=== PATIENT | female | born 1980 | race Caucasian/White ===

== ENCOUNTER 2020-05-20 13:56 | Outpatient (CLI) | payer BC, SELFPAY ==
--- NOTE | ~2020-05-20 | XR_ITS ---
XR abdomen/kub 1V 05/20/2020 14:08 INDICATION: Left ureteral stone TECHNIQUE: KUB COMPARISON: None FINDINGS: Bowel gas pattern is normal. There is no evidence of free air, mass, organomegaly, ascites or obstruction. No abnormal calculi are seen. The bones appear intact. There are surgical changes in the right pelvis. IMPRESSION: 1: No acute abdominal abnormality identified. Reviewed, dictated and finalized at location A. LEGAL SUPERVISOR
== END 2020-05-20 13:57 | disposition home or self-care (01) ==
PROVIDERS: PCP Family Medicine; Visit Provider Urology
DX: N20.1 Calculus of ureter (principal)
CPT/HCPCS: 74018

== ENCOUNTER 2020-07-28 16:44 | Outpatient (CLI) | payer BC, SELFPAY | END 2020-07-28 16:45 | disposition home or self-care (01) | LOC: ANHCOVIDVC 16:44 | PROVIDERS: PCP Family Medicine | DX: Z23 Encounter for immunization (principal) | CPT/HCPCS: 0001A; 91300 ==

== ENCOUNTER 2020-08-18 16:47 | Outpatient (CLI) | payer BC, SELFPAY | END 2020-08-18 16:48 | disposition home or self-care (01) | LOC: ANHCOVIDVC 16:47 | PROVIDERS: PCP Family Medicine | DX: Z23 Encounter for immunization (principal) | CPT/HCPCS: 0002A; 91300 ==

== ENCOUNTER 2024-05-03 15:03 | Outpatient (CLI) | payer OTHER, SELFPAY ==
[2024-05-03 15:21] LABS: Mean Corpuscular HGB Conc 34.1 g/dl (32-36); Mean Corpuscular Hemoglobin 30.6 pg (26-34); Mean Corpuscular Volume 89.5 fl (80-100); Mean Platelet Volume 9.3 fl (7.4-10.4); Platelet Count Result 280 k/mm3 (150-375); Red Blood Count 4.58 M/mm3 (4.2-5.4); Red Cell Distribution Width 11.9 % (11.5-14.5); White Blood Count 9.3 K/mm3 (4.5-10.0)
== END 2024-05-03 15:04 | disposition home or self-care (01) ==
LOC: ANHLAB 15:04
PROVIDERS: PCP Family Medicine; Visit Provider Obstetrics & Gynecology
DX: N93.8 Other specified abnormal uterine and vaginal bleeding (principal)
CPT/HCPCS: 36415; 85027

== ENCOUNTER 2024-06-01 14:29 | Outpatient (CLI) | payer OTHER, SELFPAY ==
--- NOTE | ~2024-06-01 | US_ITS ---
US pelvic complete w TV Ordering provider: Kevin Chavez MD History: . N93.9 - Abnormal uterine and vaginal bleeding, unspecified . Comparison: None. Technique: Transabdominal and endovaginal ultrasound of the pelvis (Doppler ultrasound interrogation techniques used as needed for this exam.) FINDINGS: CERVIX: Nabothian cyst measuring 1.1 x 0.8 x 1 cm. UTERUS: Measures 9.7x 4.5x 5 cm in length which is within normal limits and is anteverted. No myomet rial masses. ENDOMETRIUM: Not well defined. Possibility of endometrial fibroid or a mass cannot be excluded. Furth er evaluation advised. Increased vascularity. CUL DE SAC: No free fluid. RIGHT OVARY: Remote surgically. LEFT OVARY: Normal in size measuring 3x 1.8x 3.8 cm. Normal echotexture. Doppler vascular flow presen t. Cyst is seen measuring 2.3 x 1.7 x 1.8 cm. ADNEXA: Normal. No mass. IMPRESSION: Endometrium is not well-defined with possible fibroid or a mass. Further evaluation with a CT scan or MRI is advised. Right ovarian cyst. Nabothian cysts in the cervix. Otherwise, normal pelvic ultrasou nd. Reviewed, dictated and finalized at location A. RCIL CORE TRANSFORMER ASSEMBLER IMPRESSION: Endometrium is not well-defined with possible fibroid or a mass. Further evalua tion with a CT scan or MRI is advised. Right ovarian cyst. Nabothian cysts in t he cervix. Otherwise, normal pelvic ultrasound.
== END 2024-06-01 14:30 | disposition home or self-care (01) ==
LOC: ANHIMG 14:39
PROVIDERS: Visit Provider Obstetrics & Gynecology
DX: N93.9 Abnormal uterine and vaginal bleeding, unspecified (principal); D21.9 Benign neoplasm of connective and other soft tissue, unspecified
CPT/HCPCS: 76830; 76856

== ENCOUNTER 2024-07-10 09:40 | Outpatient (CLI) | payer OTHER, SELFPAY ==
--- NOTE | ~2024-07-10 | MR_ITS ---
EXAMINATION: MR pelvis wo/w con DATE: 07/10/2024 10:54 INDICATION: Other specified abnormal uterine and vaginal bleeding. Abnormal pelvic ultrasound. TECHNIQUE: Magnetic resonance imaging (MRI) of the pelvis was performed without and with 15 mL Multih ance intravenous contrast. Fullfield sequences of the pelvis included axial and coronal T2-weighted S S FSE, coronal 2D FIESTA, axial T1-weighted FSPGR, axial dual-echo T1-weighted FSPGR and axial T1 janiya ghted LAVA. Small field of view sequences included axial, sagital and coronal T2-weighted FSE center ed on the uterus and adnexa. Postcontrast sequences included a time course axial T1-weighted LAVA wi th full-field of view of the pelvis. COMPARISON: Ultrasound dated 06/01/2024 FINDINGS: There are multiple T2 hyperintense nabothian cysts at the cervix the largest measuring up to 11 mm. S carring related to prior section is seen along the anterior wall of the lower uterine segmen t and extending across the suprapubic anterior pelvic wall. The endometrial complex measures approxim ately 2 mm in thickness. There is asymmetric thickening of the posterior uterine wall with thickened junctional zone with ill-defined margins and a few internal T2 hyperintense foci which measures appro ximately 1.5 cm in thickness consistent with focal adenomyomatosis. This would also account for the h eterogeneous appearance with striated pattern of shadowing on the prior ultrasound. 2 cm and 1.5 cm T2 hyperintense nonenhancing cysts in the left ovary. The right ovary is not visualiz ed and reportedly surgically absent. Visualized portions of bowels including the appendix are normal. Minimal likely physiologic free fluid in the deep pelvis. No pathologically enlarged pelvic or ingui nal bulge are unremarkable with normal marrow signal throughout. lymphadenopathy. IMPRESSION: 1. Asymmetric wall thickening at the posterior uterine fundus with thickened heterogeneous junctional zone with poorly defined margins consistent with focal adenomyomatosis. Reviewed, dictated and finalized at location B. ITY ASSURANCE GROUP LEADER IMPRESSION: 1. Asymmetric wall thickening at the posterior uterine fundus with thickened he terogeneous junctional zone with poorly defined margins consistent with focal a denomyomatosis.
== END 2024-07-10 09:41 | disposition home or self-care (01) ==
LOC: MICIMG 09:40
PROVIDERS: PCP Obstetrics & Gynecology; Visit Provider Obstetrics & Gynecology
DX: R93.89 Abnormal findings on diagnostic imaging of other specified body structures (principal); N93.8 Other specified abnormal uterine and vaginal bleeding
CPT/HCPCS: 72197; A9577

== ENCOUNTER 2024-08-21 07:59 | Outpatient (CLI) | payer OTHER, SELFPAY ==
--- OUTSIDE RECORDS SUMMARY | 2024-08-21 08:10 | XMS_ITS | Referral Summary ---
Author Organization [facility] at the [facility] Office Center Address [address] [place] [address] Care Team Providers Care Inventory Control Specialist Name Role Phone Harrison Mckeon MD Unavailable [phone] Harrison Mckeon MD Primary Care Provider Kevin Chavez MD Unavailable [phone] Allergies Active Allergy Reactions Criticality Noted Date Comments Oxycodone Hallucinations Medium 02/13/2020 Hallucinations Penicillin G Rash Medium 02/07/2019 Medications magnesium oxide 400 mg magnesium capsule Take by mouth Active melatonin 5 mg tablet 1 tablet (5 mg total) Active progesterone (PROMETRIUM) 200 mg capsule Take 1 capsule (200 mg total) by mouth daily Active multivitamin-ir on-folic acid 18-400 mg-mcg tabletIndicatio ns:Vitamin Deficiency Prevention 1 tablet daily Active Active Problems Problem Noted Date Diagnosed Date Screening for colon cancer 09/28/2023 Immunizations Immunization Administration Dates Next Due Influenza, Quadrivalent, Spl it, Preservative Free, Intramuscular 03/15/2023,02/07/2019 Influenza, Unspecified 02/13/2022,2020(Deferred: Patient Refused) Social History Tobacco Use Types Packs/Day Years Used Date Smoking Tobacco: Never Smokeless Tobacco: Never Tobacco Cessation:Counseling Given: Not Answered Alcohol Use Standard Drinks/Week Comments Yes 0 (1 standard drink = 0.6 oz pur e alcohol) AUDIT-C Answer Date Recorded Q1: How often do you have a drink containing alc ohol? 2-4 times a month 12/20/2023 Q2: How many drinks containi ng alcohol do you have on a typical day when you are drinking? 1 or 2 12/20/2023 Q3: How often do you have si x or more drinks on one occasion? Never 12/20/2023 PHQ-2 Answer Date Recorded PHQ-2 Total Score (If total score is 3 or more points, staff should administer the PHQ-9) 0 02/21/2024 Exercise Vital Sign Answer Date Recorde d Days of Exercise per Week 5 days 2019 Minutes of Exercise per Session 40 min 06/20/2019 Personal Safety Answer Date Recorded Have you ever been in or are you currently in a harmful physical or emotional relationship or is someone making you feel afraid or unsafe? 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 Not on file Not on file Not on file Last Filed Vital Signs Vital Sign Reading Time Taken Comments Blood Pressure 122/68 02/21/2024 1:35 PM CDT Pulse 80 02/21/2024 1:35 PM CDT Temperature 36.2 C (97.1 F) 02/21/2024 1:35 PM CDT Respiratory Rate 18 02/21/2024 1:35 PM CDT Oxygen Saturation 99% 02/21/2024 1:35 PM CDT Inhaled Oxygen Concentration - - Weight 76.9 kg (169 lb 9.6 oz) 02/21/2024 1:35 P M CDT Height 165.1 cm (5' 5 ) 02/21/2024 1:35 PM CDT Body Mass Index 28.22 02/21/2024 1:35 PM CDT Plan of Treatment Not on file Procedures Procedure Name Priority Date/Time Associated Diagnosis Comments COLONOSCOPY 12/27/2023 10:22 AM CDT SCREENING MAMMOGRAM BILATERAL W PRABHU Schedule Routine, Read Routine (OP Routine) 08/30/2023 2:02 PM CDT Screening mammogram, encounter for from Last 3 Months or Most Recently Relevant to Health Maintenance Results * Colonoscopy (12/27/2023 10:22 AM CDT) Anatomical Region Laterality Modality Other Narrative Procedure Note Dann Romero MD - 12/27/2023 10:22 AM CDT [facility] GI ENDOSCOPY Patient Name: Daphnie Carlin Procedure Date: 12/27/2023 10:22 AM Date of : 1980 Admit Type: Outpatient Age: 43 Gender: Female Attending MD: Dann Romero M.D. Room: [facility] ENDOSCOPY ROOM [facility] Note Status: Finalized Procedure: Colonoscopy Indications: Screening for colorectal malignant neoplasm Referring MD: Providers: Dann Romero M.D. Medicines: Monitored Anesthesia Care Complications: No immediate complications. Estimated Blood Loss: Estimated blood loss: none. Procedure: Pre-Anesthesia Assessment: - Prior to the procedure, a History and Physicalwas performed, and patient medications and allergieswere reviewed. The risks and benefits of the procedureand the sedation options and risks were discussed withthe patient. All questions were answered and informed consent was obtained. Patient identification and proposed procedure were verified. After reviewingthe risks and benefits, the patient was deemed in satisfactory condition to undergo the procedure.The anesthesia plan was to use monitored anesthesiacare (MAC). Immediately prior to administration of medications, the patient was re-assessed foradequacy to receive sedatives. The heart rate, respiratory rate, oxygen saturations, blood pressure, adequacyof pulmonary ventilation, and response to care were monitored throughout the procedure. The physical status of the patient was re-assessed after the procedure. The benefits, risks and alternatives of theprocedure and sedation were discussed and informed consentwas obtained. All questions were answered. Please referto the signed informed consent document in the medical record. The scope was passed under direct vision.The [id number] colonoscope was introduced through theanus and advanced to the cecum, identified byappendiceal orifice and ileocecal valve. The colonoscopy was performed without difficulty. The patient tolerated the procedure well. The quality of the bowel preparation was good. Scope withdrawal time was 10 minutes. Prep was administered in a split dose. Findings: The perianal and digital rectal examinations were normal. A diminutive polyp was found in the descending colon. The polyp was removed with a cold biopsy forceps. Resection and retrieval were complete. Non-bleeding internal hemorrhoids were found during retroflexion. The hemorrhoids were small. The exam was otherwise without abnormality. Impression: - One diminutive polyp in the descending colon, removed with a cold biopsy forceps. Resected and retrieved. - Non-bleeding internal hemorrhoids. - The examination was otherwise normal. Recommendation: - Patient has a contact number available for emergencies. The signs and symptoms of potential delayed complications were discussed with thepatient. Return to normal activities tomorrow. Written discharge instructions were provided to thepatient. - High fiber diet. - Continue present medications. - Await pathology results. - Repeat colonoscopy in 5-10 years for surveillance based on pathology results. Dann Romero M.D. Dann Romero M.D. 12/27/2023 10:47:16 AM . Number of Addenda: 0 Note Initiated On: 12/27/2023 10:22 AM Recognized by the [place] [employer] for promoting quality in endoscopy Dann Romero MD ENDOSCOPY PROCEDURES Final Resul t * Screening Mammogram Bilateral W Prabhu (08/30/2023 2:02 PM CDT) Anatomical Region Laterality Modality Breast Bilateral Mammography Impressions 08/30/2023 2:04 PM CDT BI-RADS ATLAS category (overall): 1 - Negative There is no mammographic evidence of malignancy. A 1 year screening mammogram is recommended. The patient has been or will be contacted. We recommend annual screening mammography for women at average risk of breast cancer beginning at age 40, based on guidelines of the [place] [employer] (ACR Practice Parameter for the Performance of Screening and Diagnostic Mammography) and [place] [employer]. For women with and elevated risk of breast cancer, please refer to the ACR Practice Parameter for specific screening recommendations. The patient will be entered into a reminder system with a target due date of 1 year for her next screening exam. Narrative 08/30/2023 2:04 PM CDT Screening Mammogram Bilateral W Prabhu: 08/30/23 The study was acquired using full field digital technology and interpreted from soft copy. 2D digital mammographic views, as well as 3D digital tomosynthesis were performed in the CC and MLO projections. CLINICAL: Screening mammogram, encounter for. No relevant medical history has been documented for this patient. No known family history of breast cancer. COMPARISONS: 12/22/2021 Screening Mammogram Bilateral W Prabhu 09/16/2020 Screening Mammogram Bilateral W Prabhu 02/21/2019 Screening Mammogram Bilateral W Prabhu 02/07/2018 Screening Mammogram Bilateral W Prabhu BREAST TISSUE: The breasts are extremely dense, which lowers the sensitivity of mammography. FINDINGS: No suspicious masses, suspicious calcifications, or other suspicious findings are seen within either breast. There has been no suspicious change. us Self Screening Mammogram IMG MAMMO PROCEDURES Fi nal Result from Last 3 Months or Most Recently Relevant to [place] [address] [place] [address] [employer] [address] [id number] [place] [address] [employer] PPO Advance Directives For more information, please contact: [phone] Documents on File Type Date Recorded Patient Supervisor Offset Plate Preparation Linda arroyo ADVANCE DIRECTIVE 07/14/2018 12:00 AM GABRIELE NARANJO ADVANCE DIRECTIVE 07/14/2018 12:00 AM POWER OF CASHIER GAMBLING FINANCIAL/MEDICAL Care Teams Inventory Control Specialist Relationship Specialty Start Date End Date Harrison Mckeon MD PCP - General Family Medicine 02/23/21 Harrison Mckeon MD 06/20/19 Kevin Chavez MD [address] [facility] [address] [address] Referring Physician Obstetrics and Gynecology 12/22/21
--- OUTSIDE RECORDS SUMMARY | 2024-08-21 08:10 | XMS_ITS | Clinical Summary ---
Author Organization [facility] Address [address] [place] [address] Care Team Providers Care Equipment Processer Storage Name Role Phone Unavailable Primary Care Provider Unavailabl e Social History Tobacco Use Types Packs/Day Years Used Date Smoking Tobacco: Never Assessed Comments Unknown Sex and Gender Information Value Date Recorded Sex Assigned at Not on file Legal Sex Female 4:13 PM CDT Gender Identity Not on file Sexual Orientation Not on file Plan of Treatment Health Maintenance Due Date Last Done Comments Cervical Cancer Screening Pa p Smear (Age 30 to 64) Every 3 Years 1980 Colorectal Cancer Screening Colonoscopy (10 Years) 1978 Annual Physical 1981 Hepatitis C 01/23/1996 DTaP, Tdap and Td Vaccines ( 1 - Tdap) 1997 Hepatitis B Vaccines (1 of 3 - 19+ 3-dose series) 1997 Cervical Cancer Screening Pa p with HPV Testing (Age 30 to 64) Every 5 Years 01/23/2008 Cervical Cancer Screening with HPV 01/23/2008 Mammogram Screening 2018 COVID-19 Vaccine (2023-2 5 season) 2024 Meningococcal B Vaccine Aged Out No l onger eligible based on patient's age to complete this topic Meningococcal Vaccine Aged Out No jason ny eligible based on patient's age to complete this topic Pneumococcal Vaccine: Pediat rics (0 to 5 Years) and At-Risk Patients (6 to 64 Years) Aged Out No longer eligible b ased on patient's age to complete this topic RSV Immunizations Under 20 Months Aged Out No longer eligible based on patient's age to complete this topic Insurance [address]
--- OUTSIDE RECORDS SUMMARY | 2024-08-21 08:10 | XMS_ITS | Continuity of Care Document ---
Author Organization [facility] Address [address] [place] [address] [address] [place] [address] Phone Care Team Providers Care Explosive Ordnance Disposal Manager Name Role Phone Doisy, Edward Unavailable Unavailable Advance Directives Directive Yes / No Effective Date File Name No Information Encounters Encounter Description Practice Location Reason(s) For Visit Diagnoses Date Provider Providers Copied on Encounter [facility], [address], [place], [place], [id number], [place] tel:[phone] [facility] No Information 200 3 Doisy Edward. [address] , [address], [place], [address], [place]. tel:[phone] Family History Family Member Type Diagnosis Age At Onset No Information Payers Payer name Insurance type Covered democrat ID Authoriza tion(s) [facility] Commercial BL [id number] Social History Type Description Quantity Date Captured [...]
--- OUTSIDE RECORDS SUMMARY | 2024-08-21 08:10 | XMS_ITS | Clinical Summary ---
Author Organization [facility] at the [facility] Office Center Address [address] [place] [address] Care Team Providers Care Short Haul Driver Name Role Phone Harrison Mckeon MD Unavailable [phone] Harrison Mckeon MD Primary Care Provider [phone] Kevin Chavez MD Unavailable [phone] Allergies Active Allergy Reactions Criticality Noted Date [...] Intramuscular 03/15/2023,02/07/2019 Influenza, Unspecified 02/13/2022,2020(Deferred: Patient Refused) Surgical History Surgery Date Site/Laterality Comments DILATION AND CURETTAGE OF UTERUS EYE SURGERY LASIK SECTION TOE SURGERY Right great toe OOPHORECTOMY Right COLONOSCOPY Medical History Medical History Date Comments Kidney stone Urinary tract infection Family History Medical History Relation Name Comments Hypertension Father Arthritis Mother Hypertension Mother Relation Name Status Comments Father Mother Social History Tobacco Use Types Packs/Day Years [...] on file 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 Gender Identity Not on file Sexual Orientation Not on file 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 Not on file Not on file Obstetrics History Para Term AB IAB SAB Ectopic Multiple Livin g Live Births 2 2 2 Date Outcome GA Total Labor Labor/2nd/3rd Weight Sex Type Anes PTL Sho A1 A5 Name Clin Term Term Last Filed Vital Signs Vital Sign Reading [...] 02/21/2024 1:35 PM CDT Plan of Treatment Health Maintenance Due Date Last Done Comments Cervical Cancer Screening 1980 Hepatitis C Screening 1980 DTaP/Tdap/Td Vaccine (1 - Tdap) 1989 Hepatitis B Screening 01/23/1996 Covid-19 Vaccine ( season) 2024 02/08/2023, 03/03/2022, 04/03/2021, Additional history exists Regular Well Visit/Exam 18-64 03/15/2024 03/15/2023, 03/09/2022, 03/03/2021, Additional history exists Breast Cancer Screening-Mammogram 08/29/2024 08/30/2023, 12/22/2021, 09/16/2020, Additional history exists Depression Screening 02/20/2025 02/21/2024, 03/15/2023, 03/09/2022, Additional history exists Colon Cancer Screening-Colonoscopy 12/26/2033 12/27/2023 Influenza Vaccine Completed 06/01/2024, , 02/13/2022, Additional history exists HPV Vaccines Aged Out No longer eligi ble based on patient's age to complete this topic Pneumococcal vaccine <65 Aged Out No longer eligible based on patient's age to complete this topic Procedures Procedure Name Priority Date/Time Associated Diagnosis [...] Romero MD - 12/27/2023 10:22 AM CDT [facility] GI ENDOSCOPY Patient Name: Daphnie Carlin Procedure Date: 12/27/2023 10:22 AM Date of : 1980 Admit Type: Outpatient Age: 43 Gender: Female Attending MD: Dann Romero M.D. Room: [facility] ENDOSCOPY ROOM [facility] Note Status: Finalized Procedure: Colonoscopy Indications: [...] The scope was passed under direct vision.The PCF-[id number] colonoscope was introduced through theanus and advanced [...] On: 12/27/2023 10:22 AM Recognized by the [employer] Gastrointestinal Endoscopy for promoting quality in endoscopy us Dann Romero MD ENDOSCOPY PROCEDURES Final Resul [...] age 40, based on guidelines of the [place] (ACR Practice Parameter for the Performance of Screening and Diagnostic Mammography) and [employer] of Obstetricians and Gynecologists. For women [...] Most Recently Relevant to Health Maintenance [place] [place] [address] [place] [address] [facility] [id number] [place] [address] [facility] OPTIONS PPO Advance Directives For more information, please contact: [phone] Documents on File Type Date Recorded Patient Hospital Admitting Clerk Expl anation ADVANCE DIRECTIVE 07/14/2018 12:00 AM GABRIELE NARANJO ADVANCE DIRECTIVE 07/14/2018 12:00 AM POWER OF POLICY ISSUE CLERK FINANCIAL/MEDICAL Care Teams Short Haul Driver Relationship Specialty Start Date End Date Harrison Mckeon MD PCP - General Family Medicine 02/23/21 Harrisno Mckeon MD 06/20/19 Kevin Chavez MD [id number] [facility] [address] [address] Referring Physician Obstetrics and Gynecology 12/22/21
== END 2024-08-21 08:00 | disposition home or self-care (01) ==
LOC: ANHSURGERY 08:04
PROVIDERS: PCP Family Medicine; Visit Provider Obstetrics & Gynecology
DX: N92.0 Excessive and frequent menstruation with regular cycle (principal)
CPT/HCPCS: 36415; 86850; 86900; 86901

== ENCOUNTER 2024-08-22 00:02 | Day surgery (SDC) | payer OTHER, SELFPAY ==
[2024-08-13 09:40] VITALS: BMI 27.4
--- NOTE | 2024-08-13 10:12 | PC.NURSE ---
Report to the Outpatient Waiting Room, entrance under the green pavilion located off [facility], at 0600 on 08-22-24. Planned Procedure Time: 0730.? Time changes happen often and if your time is changed the preop area will call you the afternoon before. - You and your visitor will be asked to self-screen and do not enter if you have any COVID symptoms. Please call surgeon if you need to reschedule. - A mask is optional within the hospital at this time. Patients may have clear liquids (water, carbonated beverages, clear teas, apple juice) until 3 hours prior to surgery with a maximum of 20 ounces. 0430 - No food from midnight until time of surgery and no smoking, or chewing tobacco (or any form of nicotine). No chewing gum, candy or mints. - Infants may have breast milk until 4 hours before surgery, formula 6 hours prior to surgery. - Children will be allowed to drink immediately following surgery.? If applicable, please bring a bottle or sippy cup to assist with drinking. Juice, water, soda, and popsicles are readily available.? For infants on formula, please bring formula the day of surgery.? Pacifiers are allowed. Take only the following medications with a SIP of water on the morning of surgery: None DO NOT STOP ANY OF YOUR OTHER PRESCRIPTION MEDICATIONS PRIOR TO SURGERY EXCEPT THE FOLLOWING Hold all vitamins and supplements for 3 days per anesthesiologist. Medications to discontinue per physician: vitamins and supplements; ibuprofen Date to take last dose: 08-19-24; per Dr. Chavez Please no make-up, nail irish, hairspray, perfume, deodorant, or body powder the day of surgery.? No jewelry (including any body piercings) or valuables the day of surgery, leave them at home.? Please take a shower or bath the night before, or the morning of, surgery with an antibacterial soap.? Wear comfortable, loose fitting clothing.?Children are encouraged to wear pajamas. - Jewelry must be removed prior to entering the operating room.? Rings and piercings that are not removed may be cut off. - The hospital will not accept responsibility for valuables.? - Please leave all valuables, including medications, at home the day of surgery. If you are going home after surgery, a licensed charter driver must drive you home.? - NO public transportation without another adult if you receive anesthesia. - We recommend that an adult stay with you for 24 hours following discharge. - We also recommend that you do not drive, make important decision, drink alcoholic beverages, or take any drugs that were not prescribed by your health care provider for at least 24 hours after your discharge time. For Pediatric surgeries, we recommend two adults accompany the child home. Follow any additional instructions given to you from your surgeon. Telephone instructions given to Daphnie Carlin and asked if any additional questions and then verbalized understanding. Patient advised to call surgeon office or pre surgery nurse liaison [phone] if any additional questions.
[2024-08-22] VITALS (14 sets, daily range): BP systolic 97–130; BP diastolic 51–79; PULSE 58–81; RESP 11–18; TEMP 36.6–37.6; O2SAT 98–100
--- OUTSIDE RECORDS SUMMARY | 2024-08-22 00:05 | XMS_ITS | Referral Summary ---
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 Room: [facility] ENDOSCOPY ROOM [facility] Note Status: Finalized Procedure: Colonoscopy Indications: [...] The scope was passed under direct vision.The PCF-[id number] colonoscope was introduced through theanus and advanced [...] On: 12/27/2023 10:22 AM Recognized by the [employer] Gastrointestinal [employer]oscopy for promoting quality [...] age 40, based on guidelines of the [employer] [employer] (ACR Practice Parameter for the Performance of Screening and Diagnostic Mammography) and [employer] Gynecologists. For women [...] Most Recently Relevant to [place] [address] [place] [address] [employer] [id number] [place] [address] [employer] PPO Advance Directives For more information, please contact: [phone] Documents on File Type Date Recorded Patient Pain Coordinator Linda arroyo ADVANCE DIRECTIVE 07/14/2018 12:00 AM GABRIELE NARANJO ADVANCE DIRECTIVE 07/14/2018 12:00 AM POWER OF JEWEL HOLE ROUGH OPENER FINANCIAL/MEDICAL Care Teams Underground Production Foreperson Relationship Specialty Start Date End Date Harrison Mckeon MD PCP - General Family Medicine 02/23/21 Harrison Mckeon MD 06/20/19 Kevin Chavez MD [address] [facility] [address] [address] Referring Physician Obstetrics and Gynecology 12/22/21
--- OUTSIDE RECORDS SUMMARY | 2024-08-22 00:05 | XMS_ITS | Continuity of Care Document ---
Author Organization [facility] Address [address] [place] [address] [address] [place] [address] Phone Care Team Providers Care Retail Sales Merchandiser Development Name Role Phone Doisy, Edward Unavailable Unavailable Advance Directives Directive Yes / No Effective Date File Name No Information Encounters Encounter Description Practice Location Reason(s) For Visit Diagnoses Date Provider Providers Copied on Encounter [facility], [address], [place], [place], [id number], [place] tel:[phone] [facility] No Information [address] Doisy Edward. [address] , [address], [place], [address], [place]. tel:[phone] Family History Family Member Type Diagnosis Age At Onset No Information Payers Payer name Insurance type Covered green party ID Authoriza tion(s) [facility] Commercial BL [id number] Social History Type Description Quantity Date Captured [...]
--- OUTSIDE RECORDS SUMMARY | 2024-08-22 00:05 | XMS_ITS | Clinical Summary ---
Author Organization [facility] Address [address] [place] [address] Care Team Providers Care Power Plant Operator Name Role Phone Unavailable Primary Care Provider [...] age to complete this topic Insurance dr [address]
--- OUTSIDE RECORDS SUMMARY | 2024-08-22 00:05 | XMS_ITS | Clinical Summary ---
Author Organization 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 Room: [facility] ENDOSCOPY ROOM [facility] Note Status: Finalized Procedure: Colonoscopy Indications: [...] The scope was passed under direct vision.The PCF-[id number] colonoscope was introduced through theanus and advanced [...] On: 12/27/2023 10:22 AM Recognized by the [employer] for Gastrointestinal Endoscopy for promoting quality [...] age 40, based on guidelines of the [place] [employer] (ACR Practice Parameter for the Performance of Screening and Diagnostic Mammography) and [employer] of Obstetricians and Gynecologists. For women [...] Recently Relevant to Health Maintenance [place] [address] [place] [address] [facility] [address] [place] [address] [facility] OPTIONS PPO Advance Directives For more information, please contact: [phone] Documents on File Type Date Recorded Patient Iron Caster Expl anation ADVANCE DIRECTIVE 07/14/2018 12:00 AM GABRIELE NARANJO ADVANCE DIRECTIVE 07/14/2018 12:00 AM POWER OF SCHOOL GUARD FINANCIAL/MEDICAL Care Teams Fabrication Manager Relationship Specialty Start Date End Date Harrison Mckeon MD PCP - General Family Medicine 02/23/21 Harrison Mckeon MD 06/20/19 Kevin Chavez MD [address] [facility] [address] [address] Referring Physician Obstetrics and Gynecology 12/22/21
[2024-08-22] MEDS: ACETAMINOPHEN 500 MG TABLET 1000 MG PO ×3 (06:33→18:38)
[2024-08-22] MEDS: LACTATED RINGERS 1,000 ML 30 ML IV CONT ×2 (06:38→09:44)
[2024-08-22] MEDS: KETOROLAC 15 MG/ML VIAL (*BKC) IV PUSH ×2 (06:40→09:26)
[2024-08-22 07:04] LABS: BEDSIDEPREGUCG Negative (Negative)
--- NOTE | 2024-08-22 07:21 | WPDANESEPPF ---
Anes - Initial Pre Proc Eval Procedure: Operation Date: 08/22/24 07:30 Proposed Procedures p Robotic Laparoscopic Assisted Total Vaginal Hysterectomy with Bilateral Salpingectomy - Kevin Chavez MD Date/Time: 08/22/24 07:21 Surgeon: Kevin Chavez MD Pre Op Diagnosis: menorrhagia, adenomyosis Patient Data Age: 44 Gender: F Height: 1.65 m Weight: 76.4 kg Last Vital Signs Temp 97.8 F 08/22/24 06:05 Pulse 73 08/22/24 06:05 Resp 16 08/22/24 06:05 BP 127/74 08/22/24 06:05 Pulse Ox 99 08/22/24 06:05 O2 Del Method Room Air 08/22/24 06:05 Allergies Allergy/AdvReac Type Severity Reaction Status Date / Time oxycodone (From Percocet) Allergy Intermediate Hallucinati Verified 08/22/24 06:03 ng Penicillins Allergy Intermediate Hives Verified 08/22/24 06:03 Home Medications ?Medication ?Instructions ?Recorded ?Confirmed ?Type melatonin 5 mg capsule 3 mg PO HS PRN insomnia 07/17/24 08/22/24 History multivitamin (Daily Multi-Vitamin 1 tablet PO DAILY 07/17/24 08/22/24 History tablet) estradiol 1 mg tablet 1 mg PO DAILY #30 tabs 08/13/24 08/22/24 Rx ibuprofen 200 mg tablet 400 mg PO Q6H PRN pain 08/13/24 08/22/24 History Laboratory Tests 08/22/24 06:05 POC Urine HCG, Qual Negative (Negative) Patient hx anesthesia problems: none Family hx anesthesia problems: none Results Review: All pre-operative results and documents have been reviewed as part of the pre-operative evaluation. [facility] Past Medical History Medical History (Updated 08/04/24 @ 07:31 by Kevin Chavez MD) Vaginal delivery Surgical History Surgical History History of toe surgery History of oophorectomy Previous section Social History Social History Smoking packs per day: 0.5 Smoking cigarettes per day: 10.0 Years smoked: 7 Smoking pack-years: 3.50 Smoking status: Never smoker Tobacco type: cigarettes Second hand tobacco smoke exposure: No Smoking end date: 05/16/01 Alcohol intake: current Alcohol use details: socially 4 a month Substance use: never Substance use type: does not use Lack of Transportation: No Lack of Food: Never True Current Housing: I Have Housing Concerned About Future Housing: No Difficulty Paying Gas/Electric Bills: No Difficulty Paying for Meds: No Currently Unemployed: No Education: Bachelor's Degree Difficulty w/ Childcare or Family Care: No Living arrangements: with family Spiritual care concerns: No Anes - Eval Final PreProcedure Day of Procedure 08/22/24 07:21 Patient weight: normal Heart: regular rate and rhythm Lungs: clear to auscultation Airway: Mallampati scale class II Neurological: alert and oriented Last oral intake: >/= 8 hours ASA classification: II Emergent: no Anesthetic plan: proceed Anesthesia type and monitoring: general ETT and standard monitoring Results Review: All pre-operative results and documents have been reviewed as part of the pre-operative evaluation. Informed Consent: The patient's anesthetic plan and its attendant risks and benefits were discussed with the patient/family/POA. Questions were solicited and answers provided to the satisfaction of the patient/family/POA.
--- NOTE | 2024-08-22 07:25 | WPDHPUPDATE1 ---
History and Physical Update Update Date/Time: 08/22/24 07:25 History and Physical has been reviewed, including an updated exam of the patient. There are NO changes in the patient's condition. Risks, benefits, and alternatives have been discussed and questions answered. Patient agrees to proceed with procedure.
[2024-08-22] MEDS: ceFAZolin 2 GM/D5W 50 ML 2 GM/50 ML BAG IVPB (07:30)
[2024-08-22] MEDS: BUPivacaine HCL 0.5% 10 ML AMP 30 ML INFILTRATE (08:43)
--- NOTE | 2024-08-22 09:45 | P.OP_ITS ---
Procedure Note - Detailed Date of Procedure 08/22/24 Pre-op Diagnosis menorrhagia, adenomyosis Post-op Diagnosis Same Procedure Performed Laparoscopic assisted total vaginal hysterectomy with bilateral salpingectomy. Surgeon Kevin Chavez MD Hvac Service Tech James Anesthesia General Indications Menorrhagia, findings on imaging consistent with adenomyosis. Findings Uterus normal, right fallopian tube and ovary normal, segment of left fallopian tube Description of Procedure After informed consent was obtained she was taken to the operating room and general endotracheal anesthesia was administered. She was placed in low lithotomy position. An exam under anesthesia was performed. Uterus normal size masses palpated. She was and prepped and draped in sterile fashion. Jane catheter placed in bladder. Attention was turned to the vagina speculum was inserted. Single-tooth tenaculum placed on anterior lip of the cervix the uterus sounded to 9 cm. The cervix was dilated to a 8 Hurley dilator. A size 8 uterine manipulator was inserted and secured. A size 3.0 colp cup was secured in the vagina. Jane catheter inserted. Then attention was turned to the abdomen and .5% marcaine injected subcutaneously at 2cm above umbilicus. An incision was made horizontal 2 cm above the umbilicus. A Veress needle was inserted into abdomen, confirmation obtained with normal peritoneal pressure. A Pneumoperitoneum of 15 mm per mercury was obtained. Small adhesion of the omental tissue to left mid abdomen. It did not impair visualization of pelvis. A small incision was made approximately lateral to the umbilical port, on the left side of the port. A size 8mm robotic port was inserted under laparoscopic visualization into the abdomen on the left side. The same was done on the right side and superior and medial to this on right an incision was made and 10mm registered nurse first assistant port inserted under laparoscopic visualization. Attention was turned to surgery console. The right round ligament was ligated. The anterior leaf of broad ligament dissected anteriorly. The right side of the bladder was dissected from the lower uterine segment and upper cervix. A remnant of the right fallopian tube adhesed to right side wall removed. The posterior leaf of broad ligament dissected. The ascending uterine vessels cauterized. The uterine vessels were ligated. Attention was turned to the left round ligament which was ligated and the anterior leaf of the broad ligament was dissected anteriorly. The rest of the vesicouterine peritoneum was dissected off of the uterus. Once the bladder was dissected below the palpable colp cup. The right fallopian tube was ligated from mesosalpinx. The ovarian ligament was ligated. Tthe posterior leaf of the broad ligament was further dissected. The ascending uterine vessels were ligated. The uterine arteries were ligated. The cardinal ligaments were ligated. This was done on both sides. An incision was made anterior colpotomy incision was made and this was carried around until the cervix was removed from the vagina. The uterus and cervix were removed through the vagina. The vaginal cuff was closed in a running fashion with 0 V lock suture. Hemostasis was noted. The pelvis was irrigated. Hemostasis noted. Hemoderm was applied in the pelvis. The patient was taken out of Trendelenburg position. The pneumoperitoneum was released and the ports were removed.The skin incisions were closed with 4 O Vicryl and skin glue. The patient was extubated in operating room. The sponge count was correct x2. Patient tolerated procedure well and was taken to recovery in stable condition. Estimated Blood Loss 25 Drains No Packing No Pathology Yes (Uterus with left fallopian tube and segments of right fallopian tube) Complications No immediate complications Condition Stable Disposition PACU [facility] Billing Surgery - Charge Forward: Surgery Billing
[2024-08-22] MEDS: fentaNYL CITRATE INJ (*CRX) 100 MCG/2 ML VIAL 25 MCG IV PUSH ×5 (10:00→10:27)
[2024-08-22] MEDS: ONDANSETRON INJ 4 MG/2 ML VIAL IV PUSH (10:56)
--- NOTE | 2024-08-22 12:12 | SUR.PHASEI ---
1114: RN gave 25mcg of Fentanyl and forgot to document in JUL. This RN gave a total of 150mcg of fentanyl in recovery.
[2024-08-22] MEDS: METOCLOPRAMIDE HCL INJ 10 MG/2 ML VIAL IV PUSH (12:46)
[2024-08-22] MEDS: LACTATED RINGERS 1,000 ML 125 ML IV CONT (12:46)
[2024-08-22] MEDS: SIMETHICONE 80 MG TAB.CHEW PO ×2 (12:46→18:38)
[2024-08-22] MEDS: HYDROmorphone HCL (*CRX) 2 MG TABLET PO ×2 (12:53→19:14)
[2024-08-22] MEDS: KETOROLAC 30 MG/ML VIAL (*BKC) IV PUSH ×2 (15:22→20:46)
[2024-08-23] MEDS: ACETAMINOPHEN 500 MG TABLET 1000 MG PO ×2 (01:54→09:04)
[2024-08-23] MEDS: HYDROmorphone HCL (*CRX) 2 MG TABLET PO ×2 (03:22→08:24)
[2024-08-23] MEDS: KETOROLAC 30 MG/ML VIAL (*BKC) IV PUSH (03:22)
[2024-08-23 03:37] VITALS: BP 114/67; PULSE 57; RESP 16; TEMP 37; O2SAT 99
[2024-08-23 08:00] VITALS: BP 121/68; PULSE 64; RESP 18; TEMP 36.6; O2SAT 100
[2024-08-23] MEDS: SIMETHICONE 80 MG TAB.CHEW PO (08:24)
[2024-08-23] MEDS: DOCUSATE SODIUM 100 MG CAPSULE PO (08:24)
[2024-08-23] MEDS: IBUPROFEN 600 MG TABLET PO (09:04)
--- NOTE | 2024-08-23 09:08 | P.DS_ITS ---
DS: Summary Time Spent with Patient Time attestation: Total time spent providing and/or coordinating discharge services: DS: Data Data Completed and Pending Pending studies at discharge: Pending at discharge 08/22/24 09:24 Surgical [PTH] Routine Discharge Plan Discharge Patient Disposition: Home Discharge Instructions: Hysterectomy Discharge Instructions (Vaginal, Laparoscopic, or Abdominal) - Okay to shower in 24 hours, avoid baths/pools for 6-8 weeks - Nothing in the vagina for 6-8 weeks (no tampons or intercourse) - Limit lifting to less than 10-15 pounds and strenuous exercise for 6-8 weeks Incision Care - If you have a dressing, remove when instructed: ?- De La Cruz/clear dressings should be removed by day 7 unless it get wet/starts peeling off ? - White tape/gauze dressings should be removed/exchanged daily - If no dressing: ? - Keep your incision open to air ? - Do not place any ointments/creams/solutions unless specified by your Doctor ? - It is okay to shower daily and let soap/water run over your incision, do not scrub your incision ? - Keep your incision clean and dry, okay to place gauze/paper in your skin fold to keep sweat out - Dermabond (purple skin glue) may start peeling around 10-14 days, okay to remove after 14 days - If you see a stitch (string), do not pull/tug on it, leave it alone Encouraged Activities/OTC Medications that are safe (Unless your doctor specifically told you not to take/do them, and you're not allergic) - Colace 1 capsule twice daily or Miralax daily to prevent constipation - Tylenol 1000mg every 6-8 hours as needed for pain - Ibuprofen 600mg every 6-8 hours as needed for pain - You can use heating pads or ice packs as needed if it helps with discomfort - Getting up/walking short distances multiple times daily-- we do not recommend bed rest - Stay hydrated; try to drink 64oz/ 2L daily of water, smaller meals are okay (decreased appetite is common after anesthesia) CALL YOUR DOCTOR/GO TO THE EMERGENCY ROOM IF YOU: - Are having heavy vaginal bleeding (saturating 2 Kotex pads an hour) - Cannot keep food/liquids down - Have not urinated in 6 hours or are unable to - Have not had a bowel movement in 5 days - Have a concerning rash that might be an allergic reaction - Have a fever greater than 100.4 degrees Fahrenheit - Significant pain not relieved with your prescribed medications +/- OTC meds - Significant redness, drainage, or bleeding from your incision - If you had a hysterectomy and are having abnormal vaginal discharge and/or vaginal bleeding Patient Instructions: Hysterectomy (DC) Patient Language: Setswana Discharge Medications: New hydromorphone 2 mg Tablet 2 mg PO Q4H PRN (Reason: Pain Rated 7-10) Qty: 20 0RF Held estradiol 1 mg tablet 1 mg PO DAILY Qty: 30 0RF Hold Instructions: Resume on 09/06/24. Patient Comments: patient takes HS No Action multivitamin [Daily Multi-Vitamin] Tablet 1 tablet PO DAILY Patient Comments: patient takes HS melatonin 5 mg capsule 3 mg PO HS PRN (Reason: insomnia) ibuprofen 200 mg tablet 400 mg PO Q6H PRN (Reason: pain)
--- NOTE | 2024-08-23 10:31 | WPDANESPN ---
Anes - Prog Note Post-Op Date/Time: 08/23/24 10:31 Cardiovascular status: normal Respiratory status: normal Airway patency: baseline Mental status: baseline Vital Signs: Last Vital Signs Temp 36.6 C 08/23/24 08:00 Pulse 64 08/23/24 08:00 Resp 18 08/23/24 08:00 BP 121/68 08/23/24 08:00 Pulse Ox 100 08/23/24 08:00 O2 Del Method Room Air 08/23/24 08:15 O2 Flow Rate 10 08/22/24 10:00 Pain Score (VAS): 2 I/O: Intake & Output 08/22/24 08/23/24 08/23/24 23:59 07:59 15:59 Intake Total 600 Output Total 850 Balance -250 Patient Feedback: Patient satisfied with anesthetic care.
== END 2024-08-23 09:40 | disposition home or self-care (01) ==
LOC: ANHSURGERY 05:55 → ANHOB2 12:13
PROVIDERS: PCP Family Medicine; Visit Provider Obstetrics & Gynecology
PROC: (CPT 58552; principal; 2024-08-22 07:30)
DX: N92.0 Excessive and frequent menstruation with regular cycle (principal); N80.03 Adenomyosis of the uterus; D25.1 Intramural leiomyoma of uterus; N88.8 Other specified noninflammatory disorders of cervix uteri; N83.8 Other noninflammatory disorders of ovary, fallopian tube and broad ligament; Z87.891 Personal history of nicotine dependence
CPT/HCPCS: 58552; S2900; 88307; 99199; A9270; J0690; J1100; J1171; J1885; J2003; J2250; J2405; J2704; J2765; J3010; J7030; J7120

== ENCOUNTER 2025-03-26 13:59 | Outpatient (CLI) | payer OTHER, SELFPAY ==
--- OUTSIDE RECORDS SUMMARY | 2002-10-31 02:15 | XMS_ITS | Continuity of Care Document ---
Author Organization [facility] Address [address] [place] [address] [address] [place] [address] Phone Care Team Providers Care Boat Ride Operator Name Role Phone Doisy, Edward Unavailable Unavailable Advance Directives Directive Yes / No Effective Date File Name No Information Encounters Encounter Description Practice Location Reason(s) For Visit Diagnoses Date Provider Providers Copied on Encounter [facility], [address], [place], [place], [id number], [place] tel:[phone] [facility] No Information 200 3 Doisy Edward. [address] , [address], [place], [address], [place]. tel:[phone] Family History Family Member Type Diagnosis Age At Onset No Information Payers Payer name Insurance type Covered green party ID Authoriza tion(s) [facility] Commercial BL [id number] Social History Type Description Quantity Date Captured Comments Sex Female Smoking Status No Information Chief Complaint And Reason For Visit No Information Reason For Referral Reason For Referral No Information History Of Present Illness Encounter Date Complaint History Of Prese nt Illness No Information Functional Status Date Functional Assessmen t No Information Instructions Date Instruction Additional Infor mation No Information Assessments Type Assessment Date No Information Patient Care Teams Name Effective Dates (start - stop) Status Members No Information
--- OUTSIDE RECORDS SUMMARY | 2025-03-26 14:08 | XMS_ITS | Clinical Summary ---
Author Organization [facility] Address [address] [place] [address] Care Team Providers Care Technical Operator Name Role Phone Unavailable Primary Care [...] HPV 01/23/2008 Mammogram Screening 2018 COVID-19 Vaccine (2024-2 6 season) 2025 Influenza Adult (#1) 2025 02/07/2019 Hepatitis A Vaccines Aged Out No long er eligible based on patient's age to complete this topic Meningococcal B Vaccine Aged Out No l onger eligible based on patient's age to complete this topic Meningococcal Vaccine Aged Out No jason ny eligible based on patient's age to complete this topic Pneumococcal Vaccine: Pediat rics (0 to 5 Years) and At-Risk Patients (6 to 49 Years) Aged Out No longer eligi ble based on patient's age to complete this topic RSV Immunizations Under 20 Months Aged Out No longer eligible based on patient's age to complete this topic Insurance [address]
--- OUTSIDE RECORDS SUMMARY | 2025-03-26 14:08 | XMS_ITS | Clinical Summary ---
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 Not on file Not on file Not on file Obstetrics History Para Term AB IAB SAB Ectopic Multiple Livin g Live Births 2 2 2 Date Outcome GA Total Labor Labor/2nd/3rd Weight Sex Type Anes PTL Hso A1 A5 Name Clin Term Term Last [...] P M CDT Height 165.1 cm (5' 5) 02/21/2024 1:35 PM CDT Body Mass Index 28.22 02/21/2024 1:35 PM CDT Plan of Treatment Health Maintenance Due Date Last Done Comments Cervical Cancer Screening 1980 Hepatitis C Screening 1980 DTaP/Tdap/Td Vaccine (1 - Tdap) 1989 Hepatitis B Screening 01/23/1996 Regular Well Visit/Exam 18-64 03/15/2024 03/15/2023, 03/09/2022, 03/03/2021, Additional history exists Covid-19 Vaccine ( season) 2025 02/08/2023, 03/03/2022, 04/03/2021, Additional history exists Influenza Vaccine (#1) 2025 , 03/15/2023, 02/13/2022, Additional history exists Depression Screening 02/20/2025 02/21/2024, 03/15/2023, 03/09/2022, Additional history exists Breast Cancer Screening-Mammogram 11/05/2025 11/05/2024, 08/30/2023, 12/22/2021, Additional history exists Colon Cancer Screening-Colonoscopy 12/26/2033 12/27/2023 Pneumococcal vaccine <65 Aged Out No longer eligible based on patient's age to complete this topic Procedures Procedure Name Priority Date/Time Associated Diagnosis Comments SCREENING MAMMOGRAM BILATERAL W PRABHU Schedule Routine, Read Routine (OP Routine) 11/05/2024 3:48 PM CDT Screening mammogram, encounter for COLONOSCOPY 12/27/2023 10:22 AM CDT from Last 3 Months or Most Recently Relevant to Health Maintenance Results * (ABNORMAL) Screening Mammogram Bilateral W Prabhu (11/05/2024 3:48 PM CDT) Anatomical Region Laterality Modality Breast Bilateral Mammography Impressions 11/06/2024 8:58 AM CDT Right 1) Mass: Right breast mass in the upper region in the middle depth. Left No evidence of malignancy. OVERALL BI-RADS FINAL ASSESSMENT: 0 - Incomplete: Needs Additional Imaging Evaluation RECOMMENDATIONS: Recommend right breast diagnostic mammogram with possible ultrasound. Narrative 11/06/2024 8:58 AM CDT EXAMINATION: Screening Mammogram Bilateral W Prabhu: 11/05/2024 COMPARISON: Relevant prior studies available at the time of interpretation were reviewed. TECHNIQUE: Mammography was performed with 2D and digital breast tomosynthesis (DBT) images. CAD was utilized. BREAST PARENCHYMAL COMPOSITION: The breasts are extremely dense, which lowers the sensitivity of mammography. FINDINGS: Right 1) Mass: There is a low density, oval mass seen in the upper region of the right breast in the middle depth on the MLO view. Left There is no suspicious mass, calcification, or architectural distortion. us Self Screening Mammogram IMG MAMMO PROCEDURES Fi nal Result * Colonoscopy (12/27/2023 10:22 AM CDT) Anatomical Region Laterality Modality Other Narrative Procedure Note Dann Romero MD - 12/27/2023 10:22 AM CDT [facility] GI ENDOSCOPY Patient Name: Daphnie Carlin Procedure Date: 12/27/2023 10:22 AM Date of : 1980 Admit Type: Outpatient Age: 43 Gender: Female Attending MD: Dann Romero M.D. Room: [facility] ENDOSCOPY ROOM [facility] Note Status: Finalized Procedure: Colonoscopy Indications: Screening for colorectal malignant neoplasm Referring MD: Providers: Dann Rmoero M.D. Medicines: Monitored Anesthesia Care Complications: No [...] The scope was passed under direct vision.The [id number]-[id number] colonoscope was introduced through theanus and advanced [...] On: 12/27/2023 10:22 AM Recognized by the [employer] for promoting quality in endoscopy Dann Romero MD ENDOSCOPY PROCEDURES Final Resul t from Last 3 Months or Most Recently Relevant to Health [place] [address] [employer] [place] [address] [address] [id number] [place] [address] [employer] Advance Directives For more information, please contact: [phone] Documents on File Type Date Recorded Patient Commercial Loan Analyst Expl anation ADVANCE DIRECTIVE 07/14/2018 12:00 AM GABRIELE Whelan WILL ADVANCE DIRECTIVE 07/14/2018 12:00 AM POWER OF WATERWORKS OPERATOR FINANCIAL/MEDICAL Care Teams Vice President Global Digital Marketing Relationship Specialty Start Date End Date Harrison Mckeon MD PCP - General Family Medicine 02/23/21 Harrison Mckeon MD 06/20/19 Kevin Chavez MD [id number] [facility] [address] [facility] [address] [place] [address] Referring Physician Obstetrics and Gynecology 12/22/21
[2025-03-26 14:37] LABS: Hematocrit 42.6 % (37.0-47.0); Hemoglobin 14.5 g/dL (12.0-15.0); Mean Corpuscular HGB Conc 34.0 g/dl (32-36); Mean Corpuscular Hemoglobin 30.1 pg (26-34); Mean Corpuscular Volume 88.4 fl (80-100); Platelet Count Result 304 k/mm3 (150-375); Red Blood Count 4.82 M/mm3 (4.2-5.4); White Blood Count 8.3 K/mm3 (4.5-10.0)
[2025-03-26 16:15] LABS: Thyroid Stimulating Hormone Reflex 1.930 uIU/mL (0.465-4.68)
[2025-03-26 16:40] LABS: Vitamin B12 526.0 pg/mL (239-931)
[2025-03-27 11:09] LABS: FSH 23.0 mIU/mL (.)
== END 2025-03-26 14:00 | disposition home or self-care (01) ==
LOC: ANHLAB 14:01
PROVIDERS: Visit Provider Obstetrics & Gynecology
DX: N95.1 Menopausal and female climacteric states (principal)
CPT/HCPCS: 36415; 82607; 83001; 84443; 85027